=== PATIENT | male | born 1960 | race Caucasian/White ===

== ENCOUNTER 2020-01-07 13:50 | Emergency (ER) | payer SELFPAY ==
[2020-01-07] MEDS ORDERED: FENTANYL CITR 100 MCG/2 ML ONE ×2 (14:11→15:31)
[2020-01-07] MEDS ORDERED: ONDANSETRON 4 MG/2 ML VIAL ONE (14:11)
[2020-01-07] MEDS ORDERED: NA CHLORIDE 0.9% 1,000 ML ONE (14:11)
[2020-01-07 14:13] LABS: Absolute Lymphocytes (CBC) 2.6 K/uL (0.7-4.9); Basophils % 0.8 % (0-1.3); Hematocrit 40.8 % (39.6-49.0); Lymphocytes % 21.4 % (15.3-44.8); MPV 7.5 fL (7.6-11.3); RBC Red Blood Cell Count 4.37 M/uL (4.33-5.43)
[2020-01-07 14:44] LABS: Potassium 4.4 mmol/L (3.5-5.1)
--- NOTE | 2020-01-07 14:44 | RAD REPORT ---
EXAM DESCRIPTION: RAD - Ankle Right 3 View - 01/07/2020 2:37 pm CLINICAL HISTORY: Right ankle pain FINDINGS: Comminuted moderately displaced spiral fracture involves the distal diaphysis and metaphys is right tibia. No dislocation
--- NOTE | 2020-01-07 15:01 | RAD REPORT ---
EXAM DESCRIPTION: RAD - Tib Fib Right - 01/07/2020 2:37 pm CLINICAL HISTORY: Right leg pain FINDINGS: An oblique moderately displaced fracture involves the proximal fibula. Comminuted moderately displaced spiral fracture involves the distal diaphysis and metaphysis right ti tena. No dislocation
--- NOTE | 2020-01-07 15:37 | EDPHYS ---
Physician Documentation [facility] Name: Arnulfo Owens Age: 59 yrs Sex: Male : 1960 Arrival Date: 01/07/2020 Time: 13:58 Bed 4 Private MD: ED Physician Gael So HPI: 01/06 15:32 This 59 yrs old Male presents to ER via EMS with complaints of Leg Injury. la1 15:32 The patient presents with a deformity, pain. The complaints affect the lateral aspect la1 of right calf and right quan. Context: resulted from the patient falling, a mis-step, the patient is not able to bear weight, the patient is not able to ambulate. Onset: The symptoms/episode began/occurred just prior to arrival. Modifying factors: The symptoms are alleviated by nothing. the symptoms are aggravated by movement, weight bearing, bending knee. Associated signs and symptoms: Pertinent negatives numbness, tingling, weakness. Treatment prior to arrival includes: no previous treatment. Severity of symptoms: At their worst the symptoms were moderate. The patient has not experienced similar symptoms in the past. Historical: - Allergies: 14:00 No Known Allergies; bp - Home Meds: 14:00 None [Active]; bp - PMHx: 14:00 Migraines; bp - Immunization history:: Adult Immunizations unknown. - Social history:: Smoking status: unknown. - Immunization history: Last tetanus immunization: - up to date. ROS: 15:33 Constitutional: Negative for fever, chills, and weight loss, Cardiovascular: Negative la1 for chest pain, palpitations, and edema, Respiratory: Negative for shortness of breath, cough, wheezing, and pleuritic chest pain, Abdomen/GI: Negative for abdominal pain, nausea, vomiting, diarrhea, and constipation, Back: Negative for injury and pain, Skin: Negative for injury, rash, and discoloration, Neuro: Negative for headache, weakness, numbness, tingling, and seizure. 15:33 MS/extremity: Positive for decreased range of motion, deformity, ecchymosis, pain, swelling, of the lateral aspect of right calf and right quan. Exam: 15:34 Constitutional: This is a well developed, well nourished patient who is awake, alert, la1 and in no acute distress. Head/Face: Normocephalic, atraumatic. Neck: Trachea midline Chest/axilla: Normal chest wall appearance and motion. Nontender with no deformity. No lesions are appreciated. Cardiovascular: Regular rate and rhythm with a normal S1 and S2. No gallops, murmurs, or rubs. Normal PMI, no JVD. No pulse deficits. Respiratory: Lungs have equal breath sounds bilaterally, clear to auscultation Abdomen/GI: Soft, non-tender, with normal bowel sounds. Skin: Warm, dry with normal turgor. Normal color with no rashes, no lesions, and no evidence of cellulitis. 15:34 Musculoskeletal/extremity: Extremities: noted in the lateral aspect of right calf and right quan: decreased ROM, deformity, pain, swelling, Pulses: noted to be 3+ in the right posterior tibial artery, right dorsalis pedis artery, left posterior tibial artery and left dorsalis pedis artery, Sensation intact. Compartment Syndrome exam of affected extremity: is normal. no numbness, no sensation deficit, no weak pulses. Vital Signs: 13:59 BP 132 / 114; Pulse 83; Resp 16; Temp 97.8; Pulse Ox 96% ; bp 14:43 BP 125 / 93; Pulse 83; Resp 16; Pulse Ox 96% ; bp 15:40 BP 131 / 84; Pulse 78; Resp 16; Temp 97.8; Pulse Ox 97% on R/A; ph Whipple Coma Score: 14:47 Eye Response: spontaneous(4). Verbal Response: oriented(5). Motor Response: obeys bp commands(6). Total: 15. 15:41 Eye Response: spontaneous(4). Verbal Response: oriented(5). Motor Response: obeys ph commands(6). Total: 15. Trauma Score (Adult): 14:47 Eye Response: spontaneous(1); Verbal Response: oriented(1); Motor Response: obeys bp commands(2); Systolic BP: > 89 mm Hg(4); Respiratory Rate: 10 to 29 per min(4); Mahesh Score: 15; Trauma Score: 12 15:41 Eye Response: spontaneous(1); Verbal Response: oriented(1); Motor Response: obeys ph commands(2); Systolic BP: > 89 mm Hg(4); Respiratory Rate: 10 to 29 per min(4); Whipple Score: 15; Trauma Score: 12 MDM: 14:00 Patient medically screened. la1 15:35 Data reviewed: vital signs, nurses notes, lab test result(s), radiologic studies, I la1 have discussed the patient's presentation/case with the attending Emergency Department Physician; and as a result, I will admit patient. Data interpreted: Pulse oximetry: on room air is 96 %. Interpretation: normal. Counseling: I had a detailed discussion with the patient and/or guardian regarding: the historical points, exam findings, and any diagnostic results supporting the discharge/admit diagnosis, radiology results, the need to transfer to another facility, [facility] does not immediately have the required specialist. 01/06 14:02 Order name: CBC with Diff; Complete Time: 14:31 01/06 14:02 Order name: BMP; Complete Time: 15:05 01/06 14:02 Order name: Tib Fib Right XRAY; Complete Time: 15:05 01/06 14:02 Order name: Ankle Right 3 View XRAY; Complete Time: 15:05 01/06 14:02 Order name: IV; Complete Time: 14:02 01/06 15:37 Order name: Splint - Long Leg: Posterior w/ Stirrup; Complete Time: 15:37 01/06 16:16 Order name: NPO; Complete Time: 16:20 la Administered Medications: 14:10 Drug: fentaNYL (PF) 75 mcg Route: IVP; Site: right antecubital; bp 16:22 Follow up: Response: Pain is decreased bp 14:10 Drug: Zofran (Ondansetron) 4 mg Route: IVP; Site: right antecubital; bp 16:22 Follow up: Response: No adverse reaction bp 14:10 Drug: NS 0.9% 1000 ml Route: IV; Rate: 1000 ml; Site: right antecubital; bp 16:22 Follow up: IV Status: Completed infusion; IV Intake: 1000ml bp 15:28 Drug: fentaNYL (PF) 50 mcg Route: IVP; Site: right antecubital; ph 16:22 Follow up: Response: Pain is decreased bp 16:20 Drug: fentaNYL (PF) 50 mcg Route: IVP; Site: right antecubital; bp 16:22 Follow up: Response: Pain is decreased bp Disposition: 18:29 Co-signature as Attending Physician, Gael So MD I agree with the assessment and kdr plan of care. Disposition: 01/07/20 15:36 Transfer ordered to [facility]. Diagnosis are Comminuted fracture of shaft of tibia, Comminuted fracture of shaft of fibula. - Reason for transfer: Higher level of care. - Accepting physician is Dr. Sierra. - Condition is Stable. - Problem is new. - Symptoms have improved. Signatures: Dispatcher [employer] EDMS Gael So MD MD kdr Mp Marcelo, SNOW SHOVELER-C SNOW SHOVELER-Cla1 Stacey Villalobos, RN RN Emery Arboldea, RN RN bp Corrections: (The following items were deleted from the chart) 16:23 15:36 01/07/2020 15:36 Transfer ordered to [facility]. Diagnosis is Comminuted bp fracture of shaft of tibia; Comminuted fracture of shaft of fibula. Reason for transfer: Higher level of care. Accepting physician is Dr. Sierra. Condition is Stable. Problem is new. Symptoms have improved. la1
--- NOTE | 2020-01-07 15:37 | ER ---
Nurse's Notes [facility] Name: Arnulfo Owens Age: 59 yrs Sex: Male : 1960 Arrival Date: 01/07/2020 Time: 13:58 Bed 4 Private MD: Diagnosis: Comminuted fracture of shaft of tibia;Comminuted fracture of shaft of fibula Presentation: 01/06 13:59 Chief complaint: EMS states: SLIP AND FALL IN MUD, R TIBIAL DEFORMITY NOTED. bp Coronavirus screen: Proceed with normal triage. Ebola Screen: No symptoms or risks identified at this time. Initial Sepsis Screen: Does the patient meet any 2 criteria? HR > 90 bpm. No. Patient's initial sepsis screen is negative. Does the patient have a suspected source of infection? No. Patient's initial sepsis screen is negative. Risk Assessment: Do you want to hurt yourself or someone else? Patient reports no desire to harm self or others. Onset of symptoms was January 07, 2020 at 13:00. 13:59 Method Of Arrival: EMS: [facility] bp 13:59 Acuity: TOSHIA 3 bp 14:00 Care prior to arrival: Splint applied. Mechanism of Injury: Fall from standing bp position. Trauma event details: Injury occurred in the [facility], Injury occurred: in a recreational area. Injury occurred: January 07, 2020 Injury occurred at: 13:30. Triage Assessment: 14:00 General: Appears in no apparent distress. uncomfortable, Behavior is cooperative, bp appropriate for age, agitated. Pain: Complains of pain in right quan. EENT: No deficits noted. Neuro: No deficits noted. Cardiovascular: No deficits noted. Respiratory: No deficits noted. GI: No signs and/or symptoms were reported involving the gastrointestinal system. : No signs and/or symptoms were reported regarding the genitourinary system. Derm: No deficits noted. Musculoskeletal: Bony deformity noted of right quan. Injury Description: Deformity sustained to right quan. Trauma Activation: Consult Physician: ED Physician; Name: ; Notified At: ; Arrived At: Physician: General Surgeon; Name: ; Notified At: ; Arrived At: Physician: Radiology; Name: ; Notified At: ; Arrived At: Physician: Respiratory; Name: ; Notified At: ; Arrived At: Physician: Lab; Name: ; Notified At: ; Arrived At: Historical: - Allergies: 14:00 No Known Allergies; bp - Home Meds: 14:00 None [Active]; bp - PMHx: 14:00 Migraines; bp - Immunization history:: Adult Immunizations unknown. - Social history:: Smoking status: unknown. - Immunization history: Last tetanus immunization: - up to date. Screenin:02 Abuse screen: Denies threats or abuse. Denies injuries from another. Nutritional bp screening: No deficits noted. Tuberculosis screening: No symptoms or risk factors identified. Fall Risk Fall in past 12 months (25 points). No secondary diagnosis (0 pts). IV access (20 points). Ambulatory Aid- None/Bed Rest/Nurse Assist (0 pts). Gait- Normal/Bed Rest/Wheelchair (0 pts) Mental Status- Oriented to own ability (0 pts). Total Steward Fall Scale indicates High Risk Score (45 or more points). Fall prevention measures have been instituted. Side Rails Up X 2 Placed Close to Nursing Station Frequent Obs/Assessments Occuring As available patient and family educated on Fall Prevention Program and Strategies. Primary Survey: 14:00 NO uncontrolled hemorrhage observed. A: The patient is alert. Airway: patent, No bp supplemental oxygen in use on arrival. Oral cavity: clear, gag reflex present. Breathing/Chest: Respiratory pattern: regular, Respiratory effort: spontaneous, unlabored, Breath sounds: clear, bilaterally. Circulation: Skin color: pink, Skin temperature: warm, dry. Disability Alert. Exposure/Environment: All clothing and personal items were removed. Forensic evidence collection is not deemed to be indicated at this time. Items placed in patient belonging bag. There is no evidence of uncontrolled external bleeding. Obvious injury(ies) are noted at this time: RIGHT TIB/FIB DEFORMITY. 16:21 Reassessment Breathing/Chest Respiratory pattern Regular Respiratory effort Spontaneous bp Unlabored. Secondary Survey: 14:00 Musculoskeletal: Bony deformity noted of right quan. bp Assessment: 14:00 General: Appears distressed, uncomfortable, Behavior is cooperative, appropriate for bp age, agitated. 14:02 General: SEE TRIAGE NOTE. bp 14:12 Reassessment: XRAY AT B/S. bp 14:49 Reassessment: XRAY GROSSLY ABNORMAL. ORTHO UNAVAILABLE, PT TO BE TRANSFERRED. bp 15:50 Reassessment: REPORT TO SCOTT TALBOT AT [facility] ER. TRANSPORT PENDING. bp 16:20 Reassessment: EMS AT B/S FOR TRANSPORT. bp Vital Signs: 13:59 BP 132 / 114; Pulse 83; Resp 16; Temp 97.8; Pulse Ox 96% ; bp 14:43 BP 125 / 93; Pulse 83; Resp 16; Pulse Ox 96% ; bp 15:40 BP 131 / 84; Pulse 78; Resp 16; Temp 97.8; Pulse Ox 97% on R/A; ph Beaufort Coma Score: 14:47 Eye Response: spontaneous(4). Verbal Response: oriented(5). Motor Response: obeys bp commands(6). Total: 15. 15:41 Eye Response: spontaneous(4). Verbal Response: oriented(5). Motor Response: obeys ph commands(6). Total: 15. Trauma Score (Adult): 14:47 Eye Response: spontaneous(1); Verbal Response: oriented(1); Motor Response: obeys bp commands(2); Systolic BP: > 89 mm Hg(4); Respiratory Rate: 10 to 29 per min(4); Mahesh Score: 15; Trauma Score: 12 15:41 Eye Response: spontaneous(1); Verbal Response: oriented(1); Motor Response: obeys ph commands(2); Systolic BP: > 89 mm Hg(4); Respiratory Rate: 10 to 29 per min(4); Beaufort Score: 15; Trauma Score: 12 ED Course: 13:58 Patient arrived in ED. bp 14:00 Mp Marcelo FNP-C [facility]. la1 14:00 Gael So MD is Attending Physician. la1 14:00 Triage completed. bp 14:00 Arm band placed on. bp 14:02 Patient has correct armband on for positive identification. Bed in low position. Call bp light in reach. Side rails up X2. 14:02 Inserted saline lock: 20 gauge in right antecubital area, using aseptic technique. bp Blood collected. 14:38 Tib Fib Right XRAY In Process Unspecified. EDMS 14:38 Ankle Right 3 View XRAY In Process Unspecified. EDMS 14:42 Emery Arboleda, RN is Primary Nurse. bp 14:47 Patient maintains SpO2 saturation greater than 95% on room air. bp 14:47 Thermoregulation: warm blanket given to patient. bp 14:48 No provider procedures requiring assistance completed. Orthoglass splint: Posterior bp long leg splint applied on right leg. stirrup splint applied on right leg. 15:20 initiated a transfer with Rm Horta from the [facility] transfer center. eb 15:[address] Sierra the emergency room doctor on all for [facility] with Mp ford for patient transfer consultation. 15:30 administrative approval given by Rm Horta/ patient has been accepted to [facility] ER/ Dr. Jamie Sierra has accepted the patient in transfer/ report to be called to [phone]. 16:21 Patient transferred, IV remains in place. bp Administered Medications: 14:10 Drug: fentaNYL (PF) 75 mcg Route: IVP; Site: right antecubital; bp 16:22 Follow up: Response: Pain is decreased bp 14:10 Drug: Zofran (Ondansetron) 4 mg Route: IVP; Site: right antecubital; bp 16:22 Follow up: Response: No adverse reaction bp 14:10 Drug: NS 0.9% 1000 ml Route: IV; Rate: 1000 ml; Site: right antecubital; bp 16:22 Follow up: IV Status: Completed infusion; IV Intake: 1000ml bp 15:28 Drug: fentaNYL (PF) 50 mcg Route: IVP; Site: right antecubital; ph 16:22 Follow up: Response: Pain is decreased bp 16:20 Drug: fentaNYL (PF) 50 mcg Route: IVP; Site: right antecubital; bp 16:22 Follow up: Response: Pain is decreased bp Intake: 14:47 PO: 0ml; Total: 0ml. bp 15:41 IV: 1000ml (IV Fluid); Total: 1000ml. ph 16:22 IV: 1000ml; Total: 2000ml. bp Output: 14:47 Urine: 0ml; Total: 0ml. bp Outcome: 15:36 ER care complete, transfer ordered by MD. morales 16:21 Transferred by ground EMS to [facility]. bp 16:21 Condition: stable 16:21 Instructed on the need for transfer. 16:21 Patient's length of stay in the Emergency Department was greater than 2 hours. bp 16:23 Patient left the ED. bp Signatures: Dispatcher [employer] EDMS Mp Marcelo, MARKETING TRAFFIC COORDINATOR-C MARKETING TRAFFIC COORDINATOR-Cla1 Stacey Villalobos, RN RN Emery Arboleda RN RN bp Maye Jones Corrections: (The following items were deleted from the chart) 14:45 13:50 NO uncontrolled hemorrhage observed bp bp 14:45 13:50 A: The patient is alert. Airway: patent, No supplemental oxygen in use on bp arrival. Oral cavity: clear, gag reflex present, bp 14:45 13:50 Breathing/Chest: Respiratory pattern: regular, Respiratory effort: spontaneous, bp unlabored, Breath sounds: clear, bilaterally. bp 14:45 13:50 Circulation: Skin color: pink, Skin temperature: warm, dry, bp bp 14:45 13:50 Disability Alert bp bp 14:45 13:50 Exposure/Environment: All clothing and personal items were removed. Forensic bp evidence collection is not deemed to be indicated at this time. Items placed in patient belonging bag. There is no evidence of uncontrolled external bleeding. Obvious injury(ies) are noted at this time: RIGHT TIB/FIB DEFORMITY bp 14:46 14:45 Musculoskeletal: Bony deformity noted of right quan bp bp
[2020-01-07 16:33] VITALS: TEMP 97.8
[2020-01-07 16:35] VITALS: BP 131/84; O2SAT 97
== END 2020-01-07 16:23 | disposition short-term general hospital (02) ==
LOC: ER 13:50
PROC: 2W3LX1Z Immobilization of Right Lower Extremity using Splint (ICD-10-PCS; principal; 2020-01-07)
DX: S82.251A Displaced comminuted fracture of shaft of right tibia, initial encounter for closed fracture (principal); S82.451A Displaced comminuted fracture of shaft of right fibula, initial encounter for closed fracture; W19.XXXA Unspecified fall, initial encounter; Y93.9 Activity, unspecified; Y92.9 Unspecified place or not applicable
CPT/HCPCS: 36415; 80048; 85025; 96361; 96374; 96375; 99285; J2405; J3010; J7030